=== PATIENT | male | born 1955 ===

== ENCOUNTER 2018-06-09 19:57 | Emergency (ER) | payer SELFPAY ==
[2018-06-09 20:16] VITALS: BP 156/100; PULSE 74; RESP 18; TEMP 97.7; O2SAT 99
--- NOTE | 2018-06-09 20:44 | ED PDOC ---
HPI: Influenza Time Seen by Provider: 06/09/18 20:19 Chief Complaint: Cough, Cold, Congestion Chief Complaint (Provider): Cough, Cold, Congestion History Per: Patient Exam Limitations: no limitations Onset/Duration Of Symptoms: Days (x3) Additional complaint(s):: 62 year old male with no significant pmHx, presents to ED with complaints of chills and generalized bodyaches for 3 days. + mild cough at night time. He denies any fever, nausea, vomiting, nasal congestion, or taking medications for relief [employer]. PCP: none provided Past Medical History Reviewed: Historical Data, Nursing Documentation, Vital Signs Vital Signs: Last Vital Signs Temp 97.7 F 06/09/18 20:13 Pulse 74 06/09/18 20:13 Resp 18 06/09/18 20:13 BP 156/100 H 06/09/18 20:13 Pulse Ox 99 06/09/18 20:13 - Medical History PMH: No Chronic Diseases - Surgical History Surgical History: Appendectomy, Cholecystectomy - Family History Family History: States: Unknown Family Hx - Social History Current smoker - smoking cessation education provided: Yes - Immunization History Hx Tetanus Toxoid Vaccination: No Hx Influenza Vaccination: No Hx Pneumococcal Vaccination: No - Home Medications Home Medications: Ambulatory Orders Medication Instructions Recorded RX: No Known Home Med 11/22/16 - Allergies Allergies/Adverse Reactions: Allergies Allergy/AdvReac Type Severity Reaction Status Date / Time No Known Allergies Allergy Unverified 11/22/16 22:39 Review of Systems ROS Statement: Except As Marked, All Systems Reviewed And Found Negative Constitutional: Positive for: Chills, Other (generalized bodyaches). Negative for: Fever Respiratory: Negative for: Cough Gastrointestinal: Negative for: Nausea, Vomiting Physical Exam - Reviewed Nursing Documentation Reviewed: Yes Vital Signs Reviewed: Yes - Physical Exam Appears: Positive for: Non-toxic, No Acute Distress Head Exam: Positive for: ATRAUMATIC, NORMAL INSPECTION, NORMOCEPHALIC Skin: Positive for: Normal Color Eye Exam: Positive for: Normal appearance ENT: Positive for: Normal ENT Inspection, TM Is/Are (clear bilaterally). Negative for: Pharyngeal Erythema, Tonsillar Exudate, Tonsillar Swelling Neck: Positive for: Normal, Supple Cardiovascular/Chest: Positive for: Regular Rate, Rhythm Respiratory: Positive for: Normal Breath Sounds. Negative for: Wheezing, Respiratory Distress Gastrointestinal/Abdominal: Positive for: Normal Exam, Soft. Negative for: Tenderness Extremity: Positive for: Normal ROM (upper/lower) Neurologic/Psych: Positive for: Alert, Oriented. Negative for: Motor/Sensory Deficits Medical Decision Making Medical Decision Making: Time: 2044 Initial Plan: * Motrin 600mg PO * Influenza AB Time: 2158 --Negative for influenza. CXR ordered --Patient left ED prior to completion of treatment. Scribe Attestation: Documented by Antonia Gutierrez, acting as a scribe for Iona Morrell PA-C. Provider Scribe Attestation: All medical record entries made by the Scribe were at my direction and personally dictated by me. I have reviewed the chart and agree that the record accurately reflects my personal performance of the history, physical exam, medical decision making, and the department course for this patient. I have also personally directed, reviewed, and agree with the discharge instructions and disposition. - ECG O2 Sat by Pulse Oximetry: 99 (RA) Pulse Ox Interpretation: Normal Disposition - Clinical Impression Clinical Impression: Viral syndrome - Disposition Disposition: Left W/O Treatment Disposition Time: 22:00 Condition: STABLE Forms: [address] (Kiswahili)
== END 2018-06-09 22:05 | disposition left against medical advice (07) ==
LOC: H.ER 19:57
DX: J11.1 Influenza due to unidentified influenza virus with other respiratory manifestations (principal); F17.200 Nicotine dependence, unspecified, uncomplicated